=== PATIENT | male | born 1995 | race Two or more races ===

== ENCOUNTER 2023-09-28 21:27 | Inpatient (IN) | payer MEDICAID ==
[~2023-09-28] VITALS: Ht 182.9 cm; Wt 95.5 kg
[2023-09-28] MEDS: SODIUM CHLORIDE 0.9% 1,000 ML IV ONE ×2 (22:00→23:40)
[2023-09-28] MEDS: ONDANSETRON HCL 4 MG/2 ML VIAL IV ONE (22:33)
[2023-09-28 22:50] LABS: Basophils # (auto) 0 10 ^3/uL (0-0.2); Eosinophils # (auto) 0 10 ^3/uL (0-0.8); Lymphocytes # (auto) 0.8 10 ^3/uL (0.4-5.4); Mean Corpuscular Hemoglobin 30.9 pg (28.0-32.0); Monocytes # (auto) 0.6 10 ^3/uL (0-1.3)
[2023-09-28 22:54] LABS: Alanine Aminotransferase 15 U/L (7-40); Albumin 5.1 g/dL (3.2-4.8); Alkaline Phosphatase 71 U/L (46-116); Anion Gap 17 (5-15); Aspartate Aminotransferase < 8 U/L (13-40); BUN/Creatinine Ratio 8.2 (10.0-20.0); Bilirubin, Total 1.2 mg/dL (0.2-1.0); Blood Urea Nitrogen 35 mg/dL (9-23); Calcium 10.4 mg/dL (8.7-10.4); Carbon Dioxide 14 mmol/L (20-30); Chloride 101 mmol/L (98-107); Glucose 174 mg/dL (74-106); Lipase 24 U/L (12-53); Potassium 3.4 mmol/L (3.5-5.1); Sodium 132 mmol/L (136-145); Total Protein 9.5 g/dL (5.7-8.2)
[2023-09-28 22:58] LABS: Basophils % (auto) 0.3 % (0.0-2.0); Hematocrit 54.3 % (41.0-53.0); Lymphocytes % (auto) 6.3 % (10.0-50.0); Mean Corpuscular Volume 88.2 fL (80.0-100.0); Monocytes % (auto) 4.7 % (0.0-12.0); Neutrophils # (auto) 10.6 10 ^3/uL (1.6-8.6); Neutrophils % (auto) 88.7 % (37.0-80.0); Nucleated Red Blood Cells % 0.1 %; Red Blood Cells 6.16 10^6/uL (4.5-5.90); Red Cell Distribution Width 13.3 % (11.8-14.3)
[2023-09-28] MEDS: METOCLOPRAMIDE HCL 5MG/ml INJ 2ml VIAL IV ONE (23:40)
[2023-09-29] MEDS: IOHEXOL 300 MG/ML 100ML BOTTLE IJ ONE (02:44)
[2023-09-29] MEDS: SODIUM CHLORIDE 0.9% 1,000 ML IV ONE (02:44)
[2023-09-29] MEDS ORDERED: ONDANSETRON HCL 4 MG/2 ML VIAL IV PRN (05:15)
[2023-09-29 06:20] LABS: Chloride 105 mmol/L (98-107); Potassium 3.5 mmol/L (3.5-5.1); Sodium 136 mmol/L (136-145)
[2023-09-29 06:21] LABS: Anion Gap 13 (5-15); Carbon Dioxide 18 mmol/L (20-30)
[2023-09-29 06:22] LABS: Calcium 9.4 mg/dL (8.7-10.4)
[2023-09-29 06:26] LABS: Glucose 121 mg/dL (74-106)
[2023-09-29 06:27] LABS: BUN/Creatinine Ratio 11.8 (10.0-20.0); Blood Urea Nitrogen 31 mg/dL (9-23)
[2023-09-29 08:02] VITALS: PULSE 80; RESP 16; O2SAT 95
[2023-09-29 11:39] LABS: Basophils # (auto) 0 10 ^3/uL (0-0.2); Basophils % (auto) 0.4 % (0.0-2.0); Eosinophils # (auto) 0 10 ^3/uL (0-0.8); Eosinophils % (auto) 0.4 % (0.0-7.0); Hematocrit 48.5 % (41.0-53.0); Hemoglobin 16.7 g/dL (13.5-17.5); Lymphocytes # (auto) 1.7 10 ^3/uL (0.4-5.4); Mean Corpuscular Hemoglobin 30.5 pg (28.0-32.0); Mean Corpuscular Hgb Conc. 34.5 g/dL (32.0-36.0); Mean Corpuscular Volume 88.5 fL (80.0-100.0); Monocytes # (auto) 1.9 10 ^3/uL (0-1.3); Monocytes % (auto) 15.2 % (0.0-12.0); Neutrophils # (auto) 8.7 10 ^3/uL (1.6-8.6); Nucleated Red Blood Cells % 0.1 %; Red Blood Cells 5.48 10^6/uL (4.5-5.90); Red Cell Distribution Width 13.2 % (11.8-14.3); White Blood Cell 12.4 10^3/uL (4.4-10.8)
[2023-09-29] MEDS: SODIUM CHLORIDE 0.9% 1,000 ML IV SCH (12:06)
[2023-09-29 12:39] LABS: Erythrocyte Sedimentation Rate 6 mm/hr (0-20)
[2023-09-29 12:46] LABS: Sodium Urine < 10 mmol/L (40-220)
[2023-09-29 12:52] LABS: Protein, Urine 18.5 mg/dL (0.0-11.9)
[2023-09-29 12:53] LABS: Amphetamine Screen, Urine Neg (NEGATIVE)
[2023-09-29 12:54] LABS: Barbiturate Scree,Urine Neg (NEGATIVE); Benzodiazephine Screen, Urine Neg (NEGATIVE); Cocaine Screen, Urine Neg (NEGATIVE); Creatinine, Urine 207.49 mg/dL (30.0-125.0); Opiate Scree,Urine Neg (NEGATIVE)
[2023-09-29 12:55] LABS: Cannabinoid Screen, Urine Neg (NEGATIVE); Phencyclidine Screen, Urine Neg (NEGATIVE)
[2023-09-29 12:57] LABS: Triglycerides 97 mg/dL (< 150)
[2023-09-29 12:58] LABS: LDL Cholesterol 174 mg/dL (< 100)
[2023-09-29 12:59] LABS: Cholesterol 228 mg/dL (< 200); HDL Cholesterol 33 mg/dL (40-59)
[2023-09-29 14:54] VITALS: BP 113/74; PULSE 84; RESP 16; TEMP 98.6; O2SAT 99
[2023-09-29 15:15] VITALS: PULSE 84; RESP 16; O2SAT 99
[2023-09-29 16:28] LABS: Erythrocyte Sedimentation Rate 5 mm/hr (0-20)
[2023-09-29 16:55] VITALS: BP 116/72; PULSE 77; RESP 16; TEMP 97.5; O2SAT 97
[2023-09-29] MEDS: POTASSIUM CHL 20 Meq TABLET PO ONE (17:19)
[2023-09-29] MEDS: PANTOPRAZOLE 40 MG/10 ML VIAL INJ IV ONE (17:19)
[2023-09-29] MEDS: ENOXAPARIN SOD 30 MG/0.3 ML SYRINGE SC SCH (17:20)
[2023-09-29] MEDS: POLYETHYLENE GLYCOL 17 GM PWDR PO ONE (19:15)
[2023-09-29 20:00] VITALS: PULSE 64; RESP 20; O2SAT 95
[2023-09-29 22:00] VITALS: BP 126/68; PULSE 64; RESP 20; TEMP 97.3; O2SAT 95
[2023-09-30] VITALS (9 sets, daily range): BP systolic 104–129; BP diastolic 54–85; PULSE 63–102; RESP 16–20; TEMP 97.6–98.9; O2SAT 95–99
[2023-09-30 04:25] LABS: COVID19 ANTIGEN SOFIA FIA NEGATIVE (NEGATIVE); Rapid Influenza A Negative (Negative); Rapid Influenza B Negative (Negative)
[2023-09-30 08:24] LABS: Basophils # (auto) 0 10 ^3/uL (0-0.2); Basophils % (auto) 0.5 % (0.0-2.0); Eosinophils # (auto) 0 10 ^3/uL (0-0.8); Eosinophils % (auto) 0.6 % (0.0-7.0); Hematocrit 43.5 % (41.0-53.0); Hemoglobin 15.1 g/dL (13.5-17.5); Lymphocytes # (auto) 1.5 10 ^3/uL (0.4-5.4); Lymphocytes % (auto) 26.5 % (10.0-50.0); Mean Corpuscular Hemoglobin 30.7 pg (28.0-32.0); Mean Corpuscular Hgb Conc. 34.8 g/dL (32.0-36.0); Mean Corpuscular Volume 88.2 fL (80.0-100.0); Monocytes # (auto) 0.7 10 ^3/uL (0-1.3); Monocytes % (auto) 11.5 % (0.0-12.0); Neutrophils # (auto) 3.5 10 ^3/uL (1.6-8.6); Neutrophils % (auto) 60.9 % (37.0-80.0); Nucleated Red Blood Cells % 0.1 %; Red Blood Cells 4.93 10^6/uL (4.5-5.90); Red Cell Distribution Width 13.4 % (11.8-14.3); White Blood Cell 5.7 10^3/uL (4.4-10.8)
[2023-09-30 08:42] LABS: Alanine Aminotransferase 12 U/L (7-40); Albumin 4.3 g/dL (3.2-4.8); Alkaline Phosphatase 58 U/L (46-116); Anion Gap 6 (5-15); BUN/Creatinine Ratio 13.7 (10.0-20.0); Blood Urea Nitrogen 14 mg/dL (9-23); Calcium 9.5 mg/dL (8.5-10.1); Carbon Dioxide 26 mmol/L (20-30); Chloride 104 mmol/L (98-107); Glucose 98 mg/dL (74-106); Potassium 3.5 mmol/L (3.5-5.1); Sodium 136 mmol/L (136-145)
[2023-09-30 08:43] LABS: Aspartate Aminotransferase 9 U/L (13-40)
[2023-09-30 08:44] LABS: Total Protein 7.5 g/dL (5.7-8.2)
[2023-09-30] MEDS: PANTOPRAZOLE 40 MG/10 ML VIAL INJ IV SCH (11:52)
[2023-09-30] MEDS: LACTULOSE 20Gm/30ML SOLN PO ONE (15:00)
[2023-09-30] MEDS ORDERED: ENOXAPARIN SOD 30 MG/0.3 ML SYRINGE SC SCH (16:00)
[2023-09-30] MEDS: ACETAMINOPHEN 325 MG TAB PO PRN (20:13)
[2023-10-01 01:00] VITALS: BP 99/53; PULSE 66; RESP 18; TEMP 98.3; O2SAT 97
[2023-10-01 05:00] VITALS: BP 115/64; PULSE 91; RESP 18; TEMP 97.7; O2SAT 96
[2023-10-01 07:23] LABS: Urine Bacteria None Seen /hpf (None Seen)
[2023-10-01 07:46] LABS: Urine Blood Negative /uL (Negative); Urine Clarity Clear (Clear); Urine Color Light-Yellow (Yellow); Urine Mucus FEW (None Seen); Urine Protein, UAD Negative (Negative); Urine Specific Gravity 1.022 (1.001-1.035); Urine Urobilinogen Normal (Negative); Urine WBC 1 /hpf (0 - 3)
[2023-10-01 08:15] VITALS: BP 116/68; PULSE 89; RESP 18; TEMP 97.8; O2SAT 96
[2023-10-01] MEDS: ENOXAPARIN SOD 40 MG/0.4 ML SYRINGE SC SCH (08:46)
[2023-10-01 09:18] LABS: Hepatitis B Surface Antigen Negative (Negative)
[2023-10-01 09:32] LABS: Hepatitis B Surface Antigen Negative (Negative)
[2023-10-01 09:39] LABS: Hepatitis A Ab IgM Negative
[2023-10-01 09:40] LABS: Hepatitis B Core IgM Negative
[2023-10-01 09:41] LABS: Hepatitis C Antibody Negative (Negative)
[2023-10-01 09:55] LABS: Hepatitis C Antibody Negative (Negative)
[2023-10-01 09:56] LABS: Anion Gap 4 (5-15); Carbon Dioxide 27 mmol/L (20-30); Chloride 105 mmol/L (98-107); Potassium 3.6 mmol/L (3.5-5.1); Sodium 136 mmol/L (136-145)
[2023-10-01 10:02] LABS: BUN/Creatinine Ratio 14.3 (10.0-20.0); Blood Urea Nitrogen 12 mg/dL (9-23); Glucose 98 mg/dL (74-106)
[2023-10-01 12:35] VITALS: BP 126/81; PULSE 70; RESP 20; TEMP 98.1; O2SAT 97
== END 2023-10-01 15:32 | disposition home or self-care (01) | DRG 469 ==
LOC: ER 21:27 → OVERFLOW 09-29 05:15 → EDBD 09-29 05:15 → EAST 09-29 14:49
PROVIDERS: ADMIT Internal Medicine; ATTEND Emergency Medicine
DX: N17.9 Acute kidney failure, unspecified (principal); R57.1 Hypovolemic shock; E87.20 Acidosis, unspecified; E87.1 Hypo-osmolality and hyponatremia; Q61.3 Polycystic kidney, unspecified; E86.0 Dehydration; D72.829 Elevated white blood cell count, unspecified; D75.1 Secondary polycythemia; E78.5 Hyperlipidemia, unspecified; E87.6 Hypokalemia; I12.9 Hypertensive chronic kidney disease with stage 1 through stage 4 chronic kidney disease, or unspecified chronic kidney disease; N18.9 Chronic kidney disease, unspecified; J45.909 Unspecified asthma, uncomplicated; K59.00 Constipation, unspecified; G43.909 Migraine, unspecified, not intractable, without status migrainosus; Z20.822 Contact with and (suspected) exposure to COVID-19; E80.6 Other disorders of bilirubin metabolism; R73.9 Hyperglycemia, unspecified; Z82.71 Family history of polycystic kidney
CPT/HCPCS: 36415; 71046; 74177; 76775; 80048; 80053; 80061; 80074; 80307; 81001; 82088; 82533; 82570; 82962; 83036; 83690; 83735; 83835; 83935; 84156; 84244; 84300; 84439; 84443; 84484; 85025; 85652; 86038; 86141; 86703; 86803; 87086; 87340; 87426; 87804; 93005; 93306; 93976; 96361; 96374; 96375; G0378; J2405; J2470

== ENCOUNTER 2025-01-14 04:44 | Emergency (ER) | payer MEDICAID ==
[~2025-01-14] VITALS: Ht 177.8 cm; Wt 93.6 kg
--- NOTE | 2025-01-14 06:05 | DVH ---
CHEST RADIOGRAPH Indication: sob Technique: Frontal and lateral view of the chest was obtained Comparison: XY CHEST TWO VIEWS ROUTINE on DOS: 09/29/23 FINDINGS: Lines and Tubes: None Lungs: Clear Pleura: No effusion. No pneumothorax. Cardiomediastinal contours: Unremarkable Bones: Unremarkable IMPRESSION: 1. No evidence of acute disease.
[2025-01-14 06:28] LABS: COVID19 ANTIGEN SOFIA FIA POSITIVE (NEGATIVE)
--- NOTE | 2025-01-14 06:57 | ED.PDOC ---
SOB-HPI HPI Comments A 29 YEARs OLD FE/MALE PRESENTS TO THE ED WITH COUGH, CONGESTION AND THROAT PAIN. PT STATES HE HAS BEEN HAVING COUGH, CONGESTION AND SORE THROAT FOR THE PAST 1X WEEK. PT STATES HE WAS AT [facility] 1X WEEK PRIOR AND SYMPTOMS STARTED SHORTLY AFTER ATTENDING [facility]. PT IN THE ED, OTHERWISE HAS STABLE VITALS. PATIENT DENIES FEVER, CHILLS, CHEST PAIN, ABDOMINAL PAIN, NAUSEA, VOMITING, HEADACHE, OR OTHER COMPLAINTS. NO OTHER SYMPTOMS OR MODIFYING FACTORS AT THIS TIME. PATIENT IS ALERT, ORIENTED X 4, AND HAS STEADY GAIT. Chief Complaint: COUGH AND THROAT PAIN Time Seen by MD: 06:53 Primary Care Provider: NONE Reviewed notes: Nurses Notes, Medications, Allergies Information Source: Patient Mode of Arrival: Ambulatory Brought in by: SELF Severity: Moderate Timing: Days Duration: Since onset Context: At Rest, With Light Exertion History of: None Prehospital treatment: None Modifying Factors: Nothing Associated Signs and Symptoms: Cough, Nasal Congestion, Sore Throat If cough with SOB: Productive Past Medical History PAST MEDICAL HISTORY: Asthma, HTN Surgical History: Denies all surgeries Family History Family History: Reviewed,noncontributory to illness Social History Smoker: Non-Smoker Alcohol: Denies ETOH Use Drugs: Denies Drug Use Lives In: Home Constitutional: denies: chills, diaphoresis, fatigue, fever, malaise, sweats, weakness, others EENTM: reports: throat pain; denies: blurred vision, double vision, ear bleeding, ear discharge, ear drainage, ear pain, ear ringing, eye pain, eye redness, hearing loss, mouth pain, mouth swelling, nasal discharge, nose bleeding, nose congestion, nose pain, photophobia, tearing, throat swelling, voice changes, others Respiratory: reports: cough, shortness of breath; denies: hemoptysis, orthopnea, SOB at rest, SOB with excertion, stridor, wheezing, others Cardiovascular: denies: chest pain, dizzy spells, diaphoresis, Dyspnea on exertion, edema, irregular heart beat, left arm pain, lightheadedness, palpitations, PND, syncope, others Gastrointestinal: denies: abdomen distended, abdominal pain, blood streaked bowels, constipated, diarrhea, dysphagia, difficulty swallowing, hematemesis, melena, nausea, poor appetite, poor fluid intake, rectal bleeding, rectal pain, vomiting, others Genitourinary: denies: burning, dysuria, flank pain, frequency, hematuria, incontinence, penile discharge, penile sore, pain, testicle pain, testicle swelling, urgency, others Neurological: denies: dizziness, fainting, headache, left sided numbness, left sided weakness, numbness, paresthesia, pre-existing deficit, right sided numbness, right sided weakness, seizure, speech problems, tingling, tremors, weakness, others Musculoskeletal: denies: back pain, gout, joint pain, joint swelling, muscle pain, muscle stiffness, neck pain, others Integumetry: denies: bruises, change in color, change in hair/nails, dryness, laceration, lesions, lumps, rash, wounds, others Allergic/Immunocompromised: denies: Difficulty Healing, Frequent Infections, Hives, Itching, others Hematologic/Lymphatic: denies: anemia, blood clots, easy bleeding, easy bruising, swollen glands, others Endocrine: denies: excessive hunger, excessive sweating, excessive thirst, excessive urination, flushing, intolerance to cold, intolerance to heat, unexplained weight gain, unexplained weight loss, others Psychiatric: denies: anxiety, bipolar disorder, depression, hopeless, panic disorder, schizophrenia, sleepless, suicidal, others All Other Systems: Reviewed and Negative Physical Exam General Appearance: No Apparent Distress, Normal HEENT: PERRL/EOMI, Pharyngeal Erythema (VESICLE PHARYNX, NO EXUDATES. ), TMs Normal Neck: Full Range of Motion, Non-Tender, Normal, Normal Inspection Respiratory: Chest Non-Tender, Lungs Clear, No Accessory Muscle Use, No Respiratory Distress, Normal Breath Sounds Cardiovascular: No Edema, No JVD, No Murmur, No Gallop, Normal Peripheral Pulses, Regular Rate/Rhythm Breast Exam: Deferred Gastrointestinal: No Organomegaly, Non Tender, No Pulsatile Mass, Normal Bowel Sounds, Soft Genitalia: Deferred Pelvic: Deferred Rectal: Deferred Extremities: No calf tenderness, Normal capillary refill, Normal inspection, Normal range of motion, Non-tender, No pedal edema Musculoskeletal : Apperance: Normal Neurologic: Alert, stereotype finisher II-XII nml as Tested, No Motor Deficits, Normal Affect, Normal Mood, No Sensory Deficits Cerebellar Function: Normal Reflexes: Normal Skin: Dry, Normal Color, Warm Peripheral Pulses: 2+ carotid (R), 2+ carotid (L) Lymphatic: No Adenopathy Was a procedure done? Was a procedure done?: No Differential Dx Differential Diagnosis: Asthma, Bronchitis, Pneumonia, Respiratory Distress, Pharyngitis, URI Comments TONSILLITIS, COVID, INFLUENZA A AND B X-Ray, Labs, Meds, VS Vital Signs Date Time Temp Pulse Resp B/P (MAP) Pulse Ox O2 Delivery O2 Flow Rate FiO2 01/14/25 04:45 98.3 115 18 134/99 97 98.3 Lab Test 01/14/25 05:39 Range/Units Influenza Type A Antigen Negative Negative Influenza Type B Antigen Negative Negative SARS-CoV-2 Antigen (Rapid) Positive *A NEGATIVE [place] [address] Ph: [phone] DIAGNOSTIC IMAGING Diagnostic Imaging Report : [id number] Signed PATIENT: GRZEGORZ MCLAIN II ACCT: [id number] UNIT: [id number] : 1995 LOC: ER ROOM / BED: / AGE / SEX: 29 / M ADM STATUS: REG ER SERVICE 9 ORDERING PHYSICIAN: TRENT MCDANIEL PROCEDURE(s): CXR2 - CHEST TWO VIEWS ROUTINE REASON: sob ORDER NUMBER(s): [id number], ACCESSION NUMBER(s): [id number] CHEST RADIOGRAPH Indication: sob Technique: Frontal and lateral view of the chest was obtained Comparison: XY CHEST TWO VIEWS ROUTINE on DOS: 09/29/23 FINDINGS: Lines and Tubes: None Lungs: Clear Pleura: No effusion. No pneumothorax. Cardiomediastinal contours: Unremarkable Bones: Unremarkable IMPRESSION: 1. No evidence of acute disease. ATED BY: RONI WEBB MD DICTATED DATE/TIME: 01/14/25601 SIGNED BY: RONI WEBB MD SIGNED DATE/TIME: 01/14/25601 CC: X-Ray, Labs, Meds, VS Comment COURSE: EXTERNAL MEDICAL RECORDS REVIEWED: [NONE] INDEPENDENT HISTORIANS: [NONE] SOCIAL DETERMINANTS OF HEALTH: [NONE] LABS ORDERED: COVID TEST, INFLUENZA A AND B REVIEWED AND INTERPRETED RESULTS: NONE IMAGING ORDERED: CHEST X-RAY TREATMENTS ORDERED: ROCEPHIN 1GM IM PROCEDURES PERFORMED: NONE CRITICAL CARE TIME: NONE I HAVE DISCUSSED THE PATIENT WITH THE ATTENDING PHYSICIAN, DR. STROUD, HE AGREES WITH THE PATIENT'S PLAN OF CARE AND DISPOSITION. BASED ON HISTORY OF PRESENT ILLNESS, AND PHYSICAL EXAM, PATIENT WILL BE DISCHARGED HOME. DISCUSSED PLAN FOR DISCHARGE HOME WITH RX [AZITHROMYCIN, MEDROL DOSE PACK AND PHENERGAN DM]. MEDICATION WARNINGS GIVEN. SHARED DECISION MAKING: DISCUSSED WITH PATIENT THAT THEIR WORKUP WAS NORMAL. PATIENT INSTRUCTED TO FOLLOW UP WITH PRIMARY CARE PROVIDER IN 1-2 DAYS FOR RE- EVALUATION OF SYMPTOMS. PATIENT VERBALIZES UNDERSTANDING TO RETURN TO ED FOR NEW OR WORSENING SYMPTOMS OR IF FOLLOW UP WITH PCP CANNOT BE OBTAINED. PATIENT FEELS COMFORTABLE GOING HOME AT THIS TIME. ALL QUESTIONS ADDRESSED AT TIME OF DISCH ARGE. Time of 1ST Reevaluation: 07:30 Reevaluation 1ST: Improved Patient Education/Counseling: Diagnosis, Treatment Family Education/Counseling: No Family Present SEPSIS Sepsis Screen Date sepsis recognized/suspect: Jan 14, 2025 Time Sepsis recognized/suspect: 449 Recent Procedure: No On Antibiotic Therapy: No Respiratory Rate >20: No Heart Rate >90: No Temp<36 C (96.8 F) or >38.3 C: No SBP <90 or MAP <65 mmHG: No New Acute Mental Status Change: No Is the patient on CPAP, BIPAP,: No Physician Orders Chest Two Views Routine (01/14/25 05:40) Vital Signs Date Time Temp Pulse Resp B/P (MAP) Pulse Ox O2 Delivery O2 Flow Rate FiO2 01/14/25 04:45 98.3 115 18 134/99 97 98.3 Departure 1 Departure Time of Disposition: 07:40 Impression: Primary Impression: SARS-CoV-2 positive Additional Impression: Acute pharyngitis Qualified Codes: J02.9 - Acute pharyngitis, unspecified Disposition: 01 HOME / SELF CARE / HOMELESS Condition: Stable Additional Instructions: INSTRUCTIONS: FOLLOW-UP WITH PCP IN 1 TO 2 DAYS. TAKE MEDICATIONS PRESCRIBED. RETURN TO ED FOR ANY NEW OR WORSENING SYMPTOMS. e-Prescriptions Methylprednisolone (Medrol Dosepak) 4 Mg Reyes 4 MG PO UD, #21 TAB UAD Prov: SUBHASH DUVAL 01/14/25 Promethazine-Dm (Promethazine Dm 6.25-15 mg/5Ml) 1 Susy Susy 5 ML PO TID, #160 ML Prov: SUBHASH DUVAL 01/14/25 Azithromycin (Azithromycin) 500 Mg Tab 1 TAB PO DAILY, #5 TAB Prov: SUBHASH DUVAL 01/14/25 Discharged With: Self Critical Care Note Critical Care Time?: No Stability Stability form required: No Heart Score Heart Score: Heart Score Response (Comments) Value History N/A 0 EKG N/A 0 Age N/A 0 Risk Factors N/A 0 Troponin N/A 0 Total 0 I personally scribed for SUBHASH DUVAL ([email or web address]) on 01/14/25 at 06:57. Electronically submitted by Jimmy Zarco ([email or web address]). SUBHASH DUVAL Jan 14, 2025 06:57
[2025-01-14] MEDS ORDERED: PROM1SOL4 PO (07:16)
[2025-01-14] MEDS ORDERED: AZIT500T66 PO (07:16)
[2025-01-14] MEDS ORDERED: METH4PAK PO (07:16)
[2025-01-14] MEDS: cefTRIAXone SOD 1,000 MG VL IM ONE (07:29)
[2025-01-14 07:35] VITALS: BP 121/92; PULSE 86; RESP 18; TEMP 98.4; O2SAT 97
== END 2025-01-14 07:36 | disposition home or self-care (01) ==
LOC: ER 04:44
DX: U07.1 COVID-19 (principal); J02.9 Acute pharyngitis, unspecified; J45.909 Unspecified asthma, uncomplicated; I10 Essential (primary) hypertension
CPT/HCPCS: 36415; 71046; 87426; 87804; 96372; 99284; J0696